=== PATIENT | female | born 1970 | race Native Hawaiian/Other Pacific Islander ===

== ENCOUNTER 2018-02-18 17:52 | Emergency (ER) | payer OTHER ==
[2018-02-18 18:41] LABS: Basophils % (Auto) 0.6 % (0.0-1.8); Eosinophils # (Auto) 0.2 K/mm3 (0.0-0.4); Eosinophils % (Auto) 2.9 % (0.0-4.3); Hematocrit 39.4 % (30.3-42.9); Hemoglobin 13.7 gm/dl (10.1-14.3); Lymphocytes # (Auto) 2.7 K/mm3 (1.2-5.4); Lymphocytes % (Auto) 38.6 % (13.4-35.0); Mean Corpuscular HGB Conc 35 % (30-34); Mean Corpuscular Hemoglobin 31 pg (28-32); Mean Corpuscular Volume 90 fl (79-97); Monocytes # (Auto) 0.6 K/mm3 (0.0-0.8); Platelet Count 205 K/mm3 (140-440); Red Blood Count 4.39 M/mm3 (3.65-5.03); Red Cell Distribution Width 12.7 % (13.2-15.2)
[2018-02-18 18:48] LABS: Alanine Aminotransferase 54 units/L (7-56); Albumin 4.3 g/dL (3.9-5); BUN/Creatinine Ratio 23; Blood Urea Nitrogen 14 mg/dL (7-17); Calcium 9.4 mg/dL (8.4-10.2); Hemolysis Index 10
[2018-02-18 19:27] LABS: Bilirubin,Urine NEG (Negative); Blood,Urine NEG (Negative); Color,Urine Straw (Yellow); Protein,Urine <15 mg/dL mg/dL (Negative); Urobilinogen,Urine < 2.0 mg/dL (<2.0)
[2018-02-18 23:10] VITALS: BP 120/74
[2018-02-18] MEDS ORDERED: MORPHINE IM ONE (23:22)
[2018-02-18] MEDS ORDERED: ZOFRAN IM ONE (23:22)
--- NOTE | 2018-02-18 23:26 | Emergency Department Report ---
ED Abdominal Pain HPI - General Chief Complaint: Abdominal Pain Stated Complaint: DIZZINESS,FATIGUE,ABD PAIN Time Seen by Provider: 02/18/18 23:11 Source: patient Mode of arrival: Ambulatory Limitations: No Limitations - History of Present Illness Initial Comments: Patient is 47 years old female with no significant past medical history. Patient presented to the ER complaining of right upper quadrant pain since yesterday. Patient stated that pain started all of a sudden. Pain associated with nausea but no vomiting. No diarrhea. Patient denied any fever recently. MD Complaint: abdominal pain -: Sudden, Last night Location: RUQ Radiation: none Migration to: no migration Severity scale (0 -10): 5 Quality: stabbing Consistency: intermittent Associated Symptoms: nausea. denies: vomiting, diarrhea - Related Data Allergies Allergy/AdvReac Type Severity Reaction Status Date / Time No Known Allergies Allergy Unverified 02/18/18 17:57 ED Review of Systems ROS: Stated complaint: DIZZINESS,FATIGUE,ABD PAIN Other details as noted in HPI Comment: All other systems reviewed and negative Constitutional: denies: chills, fever Respiratory: denies: cough, orthopnea, shortness of breath, SOB with exertion, SOB at rest, wheezing Gastrointestinal: abdominal pain, nausea. denies: vomiting, diarrhea, constipation, hematemesis, melena, hematochezia Genitourinary: denies: urgency, dysuria, frequency, hematuria, abnormal menses Musculoskeletal: denies: back pain Neurological: denies: headache, weakness, numbness, paresthesias ED Past Medical Hx - Past Medical History Additional medical history: LIVER PROBLEM - Surgical History Past Surgical History?: No - Social History Smoking Status: Never Smoker Substance Use Type: None ED Physical Exam - General Limitations: No Limitations General appearance: alert, in no apparent distress - Head Head exam: Present: atraumatic, normocephalic, normal inspection - Eye Eye exam: Present: normal appearance - ENT ENT exam: Present: normal exam, normal orophraynx, mucous membranes moist - Neck Neck exam: Present: normal inspection, full ROM. Absent: tenderness, meningismus, lymphadenopathy - Respiratory Respiratory exam: Present: normal lung sounds bilaterally. Absent: respiratory distress, wheezes, rales, rhonchi, stridor, chest wall tenderness, accessory muscle use, decreased breath sounds, prolonged expiratory - Cardiovascular Cardiovascular Exam: Present: regular rate, normal rhythm, normal heart sounds - GI/Abdominal GI/Abdominal exam: Present: soft, tenderness (right upper quadrant tenderness), normal bowel sounds. Absent: distended, guarding, rebound, rigid, organomegaly , mass, bruit, pulsatile mass, hernia - Extremities Exam Extremities exam: Present: normal inspection, full ROM, normal capillary refill - Back Exam Back exam: Present: normal inspection, full ROM. Absent: tenderness, CVA tenderness (R), CVA tenderness (L), muscle spasm, paraspinal tenderness, vertebral tenderness - Neurological Exam Neurological exam: Present: alert, oriented X3, CN II-XII intact, normal gait - Skin Skin exam: Present: warm, intact, normal color ED Course Vital Signs 02/18/18 02/18/18 02/19/18 17:58 23:08 00:18 Temperature 98.8 F 98 F Pulse Rate 68 63 Respiratory 18 16 16 Rate Blood Pressure 115/77 Blood Pressure 120/74 [Right] O2 Sat by Pulse 98 98 Oximetry ED Medical Decision Making - Lab Data Result diagrams: 02/18/18 18:09 02/18/18 18:09 - Radiology Data Radiology results: report reviewed Referring Physician: JING MUSTAFA Patient Name: NA QUINTERO Date of : 1970 Sex: Female Report Date: 2018-02-19 Report Status: Finalized Findings [facility] [address] [place] [address] Ultrasound Report Signed Patient: NA QUINTERO MR#: [id number] : 1970 Acct:[id number] Age/Sex: 47 / F ADM Date: 02/18/18 Loc: ED Attending Dr: Ordering Physician: JING MUSTAFA Date of Service: 02/18/18 Procedure(s): US abdomen limited Accession Number(s): [id number] cc: JING MUSTAFA FINAL REPORT EXAM: US ABDOMEN LIMITED HISTORY: right upper quadrant pain COMPARISON: None available. TECHNIQUE: Several real-time grayscale and color Doppler images were obtained. FINDINGS: There is increased echogenicity of the liver compatible with fatty infiltration. No shadowing gallstones or gallbladder wall thickening. The common bile duct measures 5-6 millimeters on direct measurement on the images submitted. Visualized portal vein is patent. No hydronephrosis of the right kidney. Right kidney measures 10.3 centimeters in length. 13 millimeter echogenic structure superior margin right kidney concerning for nonobstructive calculus. Visualized aorta is normal in caliber. IMPRESSION: No cholelithiasis. Diffuse fatty infiltration of the liver. Borderline dilatation the common bile duct. Correlation with bilirubin suggested. Probable nonobstructive right renal calculus. Transcribed By: LMA Dictated By: WING SAHU MD Electronically Authenticated By: WING SAHU MD Signed Date/Time: 02/19/1839 DD/ TD/TT: 02/19/1839 Critical care attestation.: If time is entered above; I have spent that time in minutes in the direct care of this critically ill patient, excluding procedure time. ED Disposition Clinical Impression: Abdominal pain, Kidney stone on right side Disposition: -01 TO HOME OR SELFCARE Is pt being admited?: No Condition: Stable Instructions: Kidney Stones (ED), Abdominal Pain (ED) Referrals: MADAI GOLDSMITH MD [Staff Physician] - 3-5 Days
--- NOTE | 2018-02-19 00:45 | Ultrasound Report ---
FINAL REPORT EXAM: US ABDOMEN LIMITED HISTORY: right upper quadrant pain COMPARISON: None available. TECHNIQUE: Several real-time grayscale and color Doppler images were obtained. FINDINGS: There is increased echogenicity of the liver compatible with fatty infiltration. No shadowing gallstones or gallbladder wall thickening. The common bile duct measures 5-6 millimeters on direct measurement on the images submitted. Visualized portal vein is patent. No hydronephrosis of the right kidney. Right kidney measures 10.3 centimeters in length. 13 millimeter echogenic structure superior margin right kidney concerning for nonobstructive calculus. Visualized aorta is normal in caliber. IMPRESSION: No cholelithiasis. Diffuse fatty infiltration of the liver. Borderline dilatation the common bile duct. Correlation with bilirubin suggested. Probable nonobstructive right renal calculus.
== END 2018-02-19 01:55 | disposition home or self-care (01) ==
LOC: ED 17:52
DX: N20.0 Calculus of kidney (principal); R10.30 Lower abdominal pain, unspecified
CPT/HCPCS: 36415; 76705; 80053; 81001; 83690; 84703; 85025; 99284; J2270; J2405